=== PATIENT | male | born 1965 | race Caucasian/White ===

== ENCOUNTER 2017-02-18 18:28 | Emergency (ER) | payer SELFPAY ==
[~2017-02-18] VITALS: Ht 185.4 cm; Wt 113.6 kg
[~2017-02-18 18:28] MED LIST: DICL50TA3 PO
[2017-02-18 18:30] VITALS: BP 154/96; PULSE 76; RESP 20; TEMP 97.9; O2SAT 97
--- NOTE | 2017-02-18 19:13 | PD ---
Physical Exam Time Seen by Provider: 19:11 Narrative 51 year old male presents to ED for evaluation of hypertension, not on his medication for two months. Has been having headaches so he felt like it has been elevated. He is also having leg cramps at night. Pt states he is not supposed to take medication for anything else. No recent illnesses, fever, or chills. No other symptoms to report. Data Data Last Documented VS Vital Signs Date Time Temp Pulse Resp B/P Pulse Ox O2 Delivery O2 Flow Rate FiO2 02/18/17 18:30 97.9 76 20 154/96 97 Room Air [facility] Medical Record Reviewed: Yes Supervised Visit with KENJI: No Narrative Course 51 year old male presents to the eD for evaluation of HTN and leg cramps. Pt appears without distress, VSS. He has his old prescription bottles with him and his hoping for some medication refills for his antihypertensives because he has no PCP. Condition: Stable Amanda Rodas Feb 18, 2017 19:13
[2017-02-18] MEDS ORDERED: HYDR25TA5 PO (20:11)
[2017-02-18] MEDS ORDERED: CYCL1TAB29 PO (20:11)
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
== END 2017-02-18 20:50 | disposition home or self-care (01) ==
LOC: NEPK 18:28
DX: I10 Essential (primary) hypertension (principal); F14.90 Cocaine use, unspecified, uncomplicated; Z72.0 Tobacco use; Z76.0 Encounter for issue of repeat prescription
CPT/HCPCS: 99281

== ENCOUNTER 2017-04-27 11:10 | Emergency (ER) | payer SELFPAY ==
[~2017-04-27] VITALS: Ht 185.4 cm; Wt 118.0 kg
[~2017-04-27 11:10] MED LIST changes: +CYCL1TAB29 PO; +HYDR25TA5 PO
[2017-04-27 11:11] VITALS: BP 150/93; PULSE 63; RESP 16; TEMP 97.9; O2SAT 98
--- NOTE | 2017-04-27 11:27 | PD ---
HPI Chief Complaint: Injury Time Seen by Provider: 11:26 Travel History International Travel<30 days: No Contact w/Intl Traveler<30days: No Traveled to known affect area: No History of Present Illness HPI 51 YO male presents to the ED for evaluation of right knee and right posterior thigh pain. Onset last night while he was walking down stairs. He states that as he put his foot down he felt a pop in the back of the leg. He denies crepitus or giving way. He denies instability of the knee. States that the majority of his pain is in the back of the thigh. Ambulatory since the accident. Denies previous injury to the area. Treated with Flexeril and Trevor bandaging last night with some improvement of symptoms. PFSH Past Medical History Cardiovascular Problems: Yes Diabetes: Yes Hypertension: Yes Past Surgical History Abdominal Surgery: Yes (hernia repair) Social History Alcohol Use: Yes Tobacco Use: Yes (chewing tabacco) Substance Use: Yes (cocaine) Allergies-Medications (Allergen,Severity, Reaction): Coded Allergies: No Known Allergies (Unverified , 02/18/17) Reported Meds & Prescriptions Reported Meds & Active Scripts Active Flexeril (Cyclobenzaprine HCl) 10 Mg Tab 10 Mg PO TID Naproxen 500 Mg Tab 500 Mg PO BID Hydrochlorothiazide 25 Mg Tab 25 Mg PO DAILY 60 Days Review of Systems Except as stated in HPI: all other systems reviewed are Neg Physical Exam Narrative GENERAL: Well-nourished, well-developed white male in no acute distress. SKIN: Focused skin assessment warm/dry. No ecchymosis of the right posterior thigh or knee. HEAD: Normocephalic. EYES: No scleral icterus. No injection or drainage. NECK: Supple, trachea midline. No JVD or lymphadenopathy. CARDIOVASCULAR: Regular rate and rhythm without murmurs, gallops, or rubs. RESPIRATORY: Breath sounds equal bilaterally. No accessory muscle use. GASTROINTESTINAL: Abdomen soft, non-tender, nondistended. MUSCULOSKELETAL: No cyanosis, or edema. Focused right lower extremity exam: 2+ DP pulse. Mild tenderness to palpation of the medial aspect of the right knee near the insertion of the semimembranosus and semitendinosus. Tenderness to palpation of the medial aspect of the hamstrings. No palpable masses. Patient is able to flex the hip to 90. 5/5 strength on resisted abduction and abduction. Knee flexes beyond 90 and extend to 0. 5/5 strength on resisted flexion and extension. 4/5 strength on concentric testing of the hamstrings. BACK: Nontender without obvious deformity. No CVA tenderness. Data Data Last Documented VS Vital Signs Date Time Temp Pulse Resp B/P Pulse Ox O2 Delivery O2 Flow Rate FiO2 04/27/17 11:24 16 98 Room Air 04/27/17 11:11 97.9 63 150/93 Orders Knee, Complete (4vws) (04/27/17 11:35) Ketorolac Inj (Toradol Inj) (04/27/17 11:45) ^ Trevor Bandage (04/27/17 11:46) MDM Medical Decision Making Medical Screen Exam Complete: Yes Emergency Medical Condition: Yes Differential Diagnosis Hamstring strain versus hamstring tear versus musculoskeletal pain versus muscle spasm versus avulsion fracture versus other Narrative Course 51 YO male presents to the ED for evaluation of right knee and right posterior thigh pain. Onset last night while he was walking down stairs. He states that as he put his foot down he felt a pop in the back of the leg. He denies crepitus or giving way. He denies instability of the knee. States that the majority of his pain is in the back of the thigh. Ambulatory since the accident. Denies previous injury to the area. Treated with Flexeril and Trevor bandaging last night with some improvement of symptoms. Vitals were reviewed. Physical exam consistent with partial hamstring tear. X-ray reveals no acute bony injury of the knee. There is some fluid in the medial aspect of the soft tissues, consistent with partial tear of the insertion of the semimembranosus or semitendinosus. Patient was administered 60 mg Toradol IM. He was provided with compression wraps from the knee to the mid thigh. He was prescribed a short course of anti-inflammatory medications and muscle relaxants. I explained the prolonged course of recovery from this injury. He is instructed to protect, rest, ice, compress, elevate the extremity, take the medications as prescribed, follow up with the primary care provider or orthopedist. He was provided a note to excuse from work. He indicated understanding of instructions and is agreeable to the care plan. He is stable and discharged home. Diagnosis Primary Impression: Right hamstring muscle strain Qualified Code: S76.311A - Right hamstring muscle strain, initial encounter Referrals: [facility] Orthopedist Patient Instructions: General Instructions, Hamstring Exercises (GEN), Hamstring Injury (ED) Additional Instructions: Protect, rest, ice, compress, elevate the extremity. Apply ice no longer than 10-15 minutes per hour a few times a day. 500 mg naproxen 2 times per day to reduce pain and inflammation. Return to normal, gentle activity as tolerated. No running, jumping activities for the next few weeks. Follow up with orthopedist or your primary care provider as discussed. Return to the ED for any urgent or emergent medical condition. Med/Other Pt SpecificInfo: Prescription(s) given Scripts Cyclobenzaprine (Flexeril)10 Mg Tab10 Mg PO TID #15 TAB Ref 0 Prov:April Ybarra MD 04/27/17 Naproxen 500 Mg Lfy135 Mg PO BID #60 TAB Ref 0 Prov:April Ybarra MD 04/27/17 Disposition: 01 DISCHARGE HOME Condition: Stable Hattie Wise Apr 27, 2017 11:27
[2017-04-27] MEDS ORDERED: KETOROLAC TROMETHAMINE 60 MG/2 ML (IM) VIAL IM ONE (11:45)
[2017-04-27] MEDS ORDERED: NAPR500T PO (11:49)
[2017-04-27] MEDS ORDERED: CYCL1TAB29 PO (11:49)
--- NOTE | 2017-04-27 12:08 | RADRPT ---
EXAM DATE/TIME: 04/27/2017 11:45 [place] COMPARISON: No previous studies available for comparison. INDICATIONS : Pain in right knee, posterior. Pain after walking down stair last night. [place] something pop. MEDICAL HISTORY : None. SURGICAL HISTORY : None. ENCOUNTER: Initial ACUITY: 2 days PAIN SCORE: 8/10 LOCATION: Right upper extremity FINDINGS: Four view examination of the right knee demonstrates no evidence of fracture or dislocation. Bony mi neralization is normal. The articular surfaces are intact. The suprapatellar soft tissues have a no rmal configuration. CONCLUSION: Unremarkable exam Elvin Quick MD on April 27, 2017 at 12:06 Board Certified Radiologist. This report was verified electronically.
== END 2017-04-27 12:23 | disposition home or self-care (01) ==
LOC: NEPD 11:10
DX: S76.311A Strain of muscle, fascia and tendon of the posterior muscle group at thigh level, right thigh, initial encounter (principal); E11.9 Type 2 diabetes mellitus without complications; I10 Essential (primary) hypertension; F17.220 Nicotine dependence, chewing tobacco, uncomplicated; W10.9XXA Fall (on) (from) unspecified stairs and steps, initial encounter
CPT/HCPCS: 73564; 96372; 99284; J1885